=== PATIENT | female | born 1985 | race Caucasian/White ===

== ENCOUNTER 2017-06-09 15:01 | Inpatient (IN) ==
--- NOTE | 2017-06-09 15:13 | Emergency Department Note ---
Disposition Clinical Impression: Hypertensive urgency Chest pain Qualifiers: Chest pain type: unspecified Qualified Code(s): R07.9 - Chest pain, unspecified Disposition: Admitted As Inpatient Condition: Fair Time of Disposition: 17:59 Weakness HPI - General Chief complaint: ED Weakness Stated complaint: stroke alert Time Seen by Provider: 06/09/17 15:07 Source: patient Mode of arrival: ambulatory Limitations: no limitations Nursing Notes Reviewed: Yes Vital Signs Reviewed: Yes - History of Present Illness HPI Narrative: 32-year-old who was started on new blood pressure medicine to last night comes in today after developing chest pain following the chest pain development which he describes as substernal, tearing like she states she developed some left arm weakness and some left facial weakness. This occurred at about 2:15 AM initial diastolic blood pressure was 120. 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 Duration: constant Location: other (Chest) Migration: none Pain Severity: none Pain Scale: 6 If pain, quality: aching Improves with: none Worsens with: none Context: new medication (Pressure medicine last p.m.) Associated symptoms: Reports: chest pain (Tearing-type chest pain) - Related Data Home Medications Medication Instructions Recorded Confirmed Albuterol Sulfate [Proair Hfa] 2 puff IH Q4-6H PRN 02/28/16 06/09/17 Ibuprofen [Motrin] 800 mg PO Q8HR PRN 02/28/16 06/09/17 Norethindrone-E.estradiol-Iron 1 tab PO DAILY 02/28/16 06/09/17 [Loestrin Fe 1-20 Tablet] Omeprazole [PriLOSEC] 40 mg PO DAILY 02/28/16 06/09/17 Promethazine [Phenergan] 25 mg PO Q6HR PRN 02/28/16 06/09/17 Escitalopram [Lexapro] 20 mg PO DAILY 06/09/17 06/09/17 Hyoscyamine Sulfate [Symax Duotab] 0.375 mg PO HS 06/09/17 06/09/17 Losartan [Cozaar] 100 mg PO HS 06/09/17 06/09/17 amLODIPine [Norvasc] 2.5 mg PO HS 06/09/17 06/09/17 metFORMIN [Glucophage] 500 mg PO HS 06/09/17 06/09/17 Previous Rx's Medication Instructions Recorded Amoxicillin/Clavulanate [Augmentin] 500 mg PO BIDWM #10 tablet 06/06/17 Allergies Allergy/AdvReac Type Severity Reaction Status Date / Time bupropion [From Wellbutrin] AdvReac Vomiting Verified 06/06/17 19:25 All systems ED: reviewed and negative except as stated. Constitutional: Denies: fever, chills, weakness, weight change Eyes: Denies: eye pain, eye discharge, vision change ENT ED: Denies: ear pain, throat pain, dental pain, hearing loss, epistaxis, congestion, dysphagia Cardiovascular: Reports: chest pain. Denies: palpitations, dyspnea on exertion , edema, syncope Respiratory: Denies: cough, dyspnea, wheezes, hemoptysis, stridor Gastrointestinal: Denies: abdominal pain, nausea, vomiting, diarrhea, constipation, hematemesis, melena, hematochezia Genitourinary: Denies: dysuria, frequency, hematuria, discharge Musculoskeletal: Denies: back pain, neck pain, arthralgia, myalgia Integumentary: Denies: rash, abrasion, lesions Neurological: Reports: weakness. 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 - Social History Smoking Status: Never smoker Smokeless Tobacco Status: No Alcohol use: Reports: none Drug use: Reports: none Physical Exam - General Limitations: no limitations General appearance: alert, in no apparent distress - Head Head exam: atraumatic, normocephalic, normal inspection - Eye Eye exam: Present: normal appearance, PERRL, EOMI - ENT ENT exam: normal exam, normal oropharynx, mucous membranes moist - Neck Neck exam: Present: normal inspection, full ROM, trachea midline - Chest Chest inspection: Present: normal inspection, symmetric chest wall rise - Respiratory Respiratory exam: Present: normal lung sounds bilaterally - Cardiovascular Cardiovascular exam: Present: regular rate, normal rhythm, normal heart sounds - Abdominal Exam Abdominal exam: Present: soft, Non-Tender. Absent: tenderness, distention, guarding, rebound, rigidity - Extremities Exam Extremities exam: Present: normal inspection, full ROM. Absent: tenderness, pedal edema - Expanded Lower Extremity Exam Neurovascular/Tendon exam: Absent: motor deficit, sensory deficit, tendon deficit Gait: observed and normal - Back Exam Back exam: Present: normal inspection, full ROM. Absent: tenderness - Neurological Exam Neurological exam: Present: alert, oriented X3, motor sensory deficit - Psychiatric Psychiatric exam: Present: normal affect, normal mood - Skin Skin exam: Present: warm Course - Reevaluation(s) Reevaluation #1: Patient was started on a blood pressure medicine on to [facility]' she does not know their names although she says she was taken off lisinopril. She had some lower lip swelling which seems to be getting worse we will treat her with steroids and antihistamines. Time: 15:53 - Consultations Consultation #1: Dr. Peoples reports head CT is negative for acute findings. Time: 15:42 Consultation #2: Discussed with , [facility], stroke alert and he does not feel the patient warrants TPA. He does request a CTA of the head and neck. And then we will admit for further evaluation and treatment. He recommends treatment of the hypertension. Time: 15:48 Consultation #3: Swelling of the lower lip markedly improved Time: 17:59 Additional Consultation(s): 18:[address] Welch, admit Vital Signs Temperature 98.1 F 06/09/17 15:04 Pulse Rate 118 06/09/17 15:04 Respiratory Rate 15 06/09/17 15:04 Blood Pressure 208/120 06/09/17 15:04 O2 Sat by Pulse Oximetry 95 06/09/17 15:04 Temperature 98.1 F 06/09/17 15:04 Pulse Rate 120 06/09/17 19:31 Respiratory Rate 18 06/09/17 20:13 Blood Pressure 130/81 06/09/17 20:13 O2 Sat by Pulse Oximetry 97 06/09/17 19:31 Oxygen Delivery Oxygen Delivery Room Air Weakness - Lab Data Lab results reviewed: Yes I reviewed the patient's lab results. Result diagrams: 06/09/17 15:17 06/09/17 15:17 Lab Results 06/09/17 06/09/17 06/09/17 Range/Units 15:17 15:17 15:17 WBC 10.9 (4.3-11.1) K/mcL RBC 4.71 (3.82-4.97) M/mcL Hgb 14.3 (11.5-15.4) g/dL Hct 42.5 (35.3-44.9) % MCV 90.2 (83.0-100.0) fL MCH 30.4 (28.0-33.3) pg MCHC 33.6 (31.6-35.5) g/dL RDW 12.7 (11.5-14.5) % Plt Count 396 (140-400) K/mcL MPV 9.8 (9.4-12.4) fL Immature Gran % 0.4 (0-4) % Seg Neutrophils % 67.8 % Lymphocytes % 23.0 % Monocytes % 4.8 % Eosinophils % 3.5 % Basophils % 0.5 % Neutrophils # 7.4 (1.6-8.9) K/mcL Lymphocytes # 2.5 (0.6-4.6) K/mcL Monocytes # 0.5 (0.0-1.3) K/mcL Eosinophils # 0.4 (0.0-0.6) K/mcL Basophils # 0.1 (0.0-0.2) K/mcL PT 11.0 (9.4-12.1) Seconds INR 1.0 APTT 29.0 (26.0-36.0) Seconds Sodium 136 (136-145) mEq/L Potassium 4.0 (3.5-5.1) mEq/L Chloride 100 (98-107) mEq/L Carbon Dioxide 23 (23-29) mEq/L BUN 12 (6-20) mg/dL Creatinine 0.59 L (0.60-1.20) mg/dL Est GFR ( Amer) > 60 (> 60) Est GFR (Non-Af Amer) > 60 (> 60) BUN/Creatinine Ratio 20 (6-26) Glucose 203 H (70-105) mg/dL Calculated Osmolality 288 (280-300) Calcium 9.1 (8.6-10.3) mg/dL Troponin I < 0.03 (< 0.04) ng/mL Serum , Qual (Negative) 06/09/17 Range/Units 16:39 WBC (4.3-11.1) K/mcL RBC (3.82-4.97) M/mcL Hgb (11.5-15.4) g/dL Hct (35.3-44.9) % MCV (83.0-100.0) fL MCH (28.0-33.3) pg MCHC (31.6-35.5) g/dL RDW (11.5-14.5) % Plt Count (140-400) K/mcL MPV (9.4-12.4) fL Immature Gran % (0-4) % Seg Neutrophils % % Lymphocytes % % Monocytes % % Eosinophils % % Basophils % % Neutrophils # (1.6-8.9) K/mcL Lymphocytes # (0.6-4.6) K/mcL Monocytes # (0.0-1.3) K/mcL Eosinophils # (0.0-0.6) K/mcL Basophils # (0.0-0.2) K/mcL PT (9.4-12.1) Seconds INR APTT (26.0-36.0) Seconds Sodium (136-145) mEq/L Potassium (3.5-5.1) mEq/L Chloride (98-107) mEq/L Carbon Dioxide (23-29) mEq/L BUN (6-20) mg/dL Creatinine (0.60-1.20) mg/dL Est GFR ( Amer) (> 60) Est GFR (Non-Af Amer) (> 60) BUN/Creatinine Ratio (6-26) Glucose (70-105) mg/dL Calculated Osmolality (280-300) Calcium (8.6-10.3) mg/dL Troponin I (< 0.04) ng/mL Serum , Qual Negative (Negative) - Radiology Data Radiology results reviewed: Yes I reviewed the patient's radiology results. - EKG Data EKG attestation: Yes I reviewed and interpreted this EKG. EKG shows normal: sinus rhythm Rate: tachycardia Rhythm: NSR Interpretation: nonspecific ST-T wave changes Critical Care Time Critical Care Time: Yes Total Critical Care Time: 35 Attestation: The high probability of a clinically significant, sudden or life threatening deterioration of the [35] system(s) required my full and direct attention, intervention and personal management. The aggregate critical care time was [] minutes. This time is in addition to time spent performing reported procedures but includes the following: [x] Data Review and interpretation [x] Patient assessment and monitoring of vital signs [x] Documentation [x] Medication orders and management NIH Stroke Scale - Level of Consciousness LOC: Alert - LOC Questions LOC Questions: Answers both correctly - LOC Commands LOC Commands: Performs both correctly - Best Gaze Best Gaze: Normal - Visual Visual: No visual loss - Facial Palsy Facial Palsy: Minor asymmetry on smiling, flattened nasolabial fold - Motor Arms Motor Arm-Left: Drift, does NOT hit bed Motor Arm-Right: No drift for 10 seconds - Motor Legs Motor Leg-Left: No drift for 5 seconds Motor Leg-Right: No drift for 5 seconds - Limb Ataxia Limb Ataxia: Normal, No Ataxia - Sensory Sensory: Normal - Best Language Best Language: No aphasia - Dysarthria Dysarthria: Normal - Extinction and Inattention Extinction and Inattention: Normal - NIHSS Total Score NIHSS Total Score: 2
[2017-06-09 15:22] LABS: Basophils # 0.1 K/mcL (0.0-0.2); Basophils % 0.5 %; Eosinophils # 0.4 K/mcL (0.0-0.6); Eosinophils % 3.5 %; Hematocrit 42.5 % (35.3-44.9); Hemoglobin 14.3 g/dL (11.5-15.4); Immature Granulocytes % 0.4 % (0-4); Lymphocytes # 2.5 K/mcL (0.6-4.6); Mean Corpuscular HGB Conc 33.6 g/dL (31.6-35.5); Mean Corpuscular Hemoglobin 30.4 pg (28.0-33.3); Mean Corpuscular Volume 90.2 fL (83.0-100.0); Mean Platelet Volume 9.8 fL (9.4-12.4); Monocytes # 0.5 K/mcL (0.0-1.3); Monocytes % 4.8 %; Neutrophils # 7.4 K/mcL (1.6-8.9); Platelet Count 396 K/mcL (140-400); Red Blood Count 4.71 M/mcL (3.82-4.97); Red Cell Distribution Width 12.7 % (11.5-14.5); Segmented Neutrophils % 67.8 %
[2017-06-09] MEDS: niCARdipine 40 MG/200 ML MLS IVC SCH (15:36)
[2017-06-09 15:46] LABS: Troponin I < 0.03 ng/mL (< 0.04)
[2017-06-09] MEDS ORDERED: methylPREDNISolone 125 MG/2 ML VIAL IVP ONE (15:51)
[2017-06-09] MEDS ORDERED: Famotidine 20 MG/2 ML VIAL IVP ONE (15:51)
[2017-06-09 16:20] LABS: BUN/Creatinine Ratio 20 (6-26); Blood Urea Nitrogen 12 mg/dL (6-20); Calcium 9.1 mg/dL (8.6-10.3); Carbon Dioxide 23 mEq/L (23-29); Chloride 100 mEq/L (98-107); Glucose 203 mg/dL (70-105); Osmolality,Calculated 288 (280-300); Sodium 136 mEq/L (136-145); eGFR For African Americans > 60 (> 60); eGFR For Non-African Americans > 60 (> 60)
--- NOTE | 2017-06-09 21:21 | Internal Med History&Physical ---
Date of Encounter: 06/09/17 Time of Encounter: 21:00 Assessment and Plan (1) Hypertensive urgency Current visit: Yes Status: Acute Patient reports a history of uncontrolled blood pressures and primary care provider has been adjusting medications In the ER, patient was found to have hypertension urgency with systolic blood pressure of 208/120 and heart rate 121. Will continue nicardipine drip started in the ER and monitor overnight MRI also order for concerns of possible CVA; CT of the head negative and patient without any neurological findings (2) Chest pain Current visit: Yes Status: Acute Suspect secondary to hypertension urgency First set of cardiac biomarkers negative in the ER Will trend troponins and monitor on telemetry Qualifiers: Chest pain type: unspecified Qualified Code(s): R07.9 - Chest pain, unspecified (3) GERD (gastroesophageal reflux disease) Current visit: Yes Status: Acute Epigastric tenderness on exam and CT of the chest showed markedly esophageal inflammatory changes consistent with diffuse esophagitis Place patient on IV PPI GI not available on the weekend for consult for EGD Qualifiers: Esophagitis presence: with esophagitis Qualified Code(s): K21.0 - Gastro- esophageal reflux disease with esophagitis (4) DVT prophylaxis Current visit: Yes Status: Acute Low risk; patient to ambulate Internal Medicine - H&P: HPI Chief complaint: Chest pain Admitted From: Home Plans for Post Hospital Care: Home History of present illness: Patient is a 32-year-old female with past medical history significant for uncontrolled hypertension, GERD and mood disorder who presents to the ER on 06/09 due to chest pain. Patient reports of substernal chest pain which she describes as sharp to achy to pressure which is constant with no provoking or relieving factors. She reported of associated symptoms of left jaw numbness and altered sensation all left side of face. Patient came into the ER for further evaluation. In the ER, patient was found to have hypertension urgency with systolic blood pressure of 208/120 and heart rate 121. Patient was started on nicardipine drip the ER. Patient will be admitted to medical surgical floor for management of hypertension urgency. Past Med Surg Social Fam HX - Past Medical History Medical history: diabetes, GERD, hypertension Psychiatric history: anxiety, depression - Past Surgical History Surgical History: non-contributory, - Social History Smoking Status: Never smoker Smokeless Tobacco Status: No Alcohol use: none Drug use: none - Family History Paternal Grandfather Living Status: Hx Family Cardiac Disorders: Yes (triple bypass, HTN) Paternal Grandmother Living Status: Still Living Hx Family Cardiac Disorders: Yes (HTN) Hx Family Cancer: Yes (thyroid) Maternal Grandmother Living Status: Still Living Hx Family Cancer: Yes (lung) Internal Medicine - H&P: Meds Albuterol Sulfate [Proair Hfa] 2 puff IH Q4-6H PRN 02/28/16 [History] Ibuprofen [Motrin] 800 mg PO Q8HR PRN 02/28/16 [History] Norethindrone-E.estradiol-Iron [Loestrin Fe 1-20 Tablet] 1 tab PO DAILY [History] Omeprazole [PriLOSEC] 40 mg PO DAILY 02/28/16 [History] Promethazine [Phenergan] 25 mg PO Q6HR PRN 02/28/16 [History] Amoxicillin/Clavulanate [Augmentin] 500 mg PO BIDWM #10 tablet 06/06/17 [Rx] Escitalopram [Lexapro] 20 mg PO DAILY 06/09/17 [History] Hyoscyamine Sulfate [Symax Duotab] 0.375 mg PO HS 06/09/17 [History] Losartan [Cozaar] 100 mg PO HS 06/09/17 [History] amLODIPine [Norvasc] 2.5 mg PO HS 06/09/17 [History] metFORMIN [Glucophage] 500 mg PO HS 06/09/17 [History] 3 Allergy/AdvReac Type Severity Reaction Status Date / Time bupropion [From Wellbutrin] AdvReac Vomiting Verified 06/06/17 19:25 All Systems PM: A 10-system review of systems was performed and is negative for pertinent findings except as documented above in the HPI. - Constitutional Vitals: Temp Pulse Resp BP Pulse Ox 98.1 F 120 18 130/81 97 06/09/17 15:04 06/09/17 19:31 06/09/17 20:13 06/09/17 20:13 06/09/17 19:31 General appearance: Present: A&O X 3, no acute distress - Head Head exam: Present: normocephalic - Eye Eye exam: Present: normal appearance - ENT ENT exam: Present: mucous membranes moist - Respiratory Respiratory exam: Present: CTAB. Absent: accessory muscle use, rales, rhonchi, wheezes - Cardiovascular Cardiovascular exam: Present: RRR, +S1, +S2. Absent: diastolic murmur, gallop, rubs, systolic murmur - GI/Abdominal GI/Abdominal exam: Present: normal bowel sounds, soft, tenderness (Epigastric tenderness to palpation), no peritoneal signs. Absent: distended - Extremities Exam Extremities exam: Absent: pedal edema - Psychiatric Psychiatric exam: Present: normal mood - Skin Skin exam: Present: normal color Internal Med - H&P Results - Labs CBC & Chem 7: 06/09/17 15:17 06/09/17 15:17
[2017-06-09] MEDS ORDERED: Naloxone 0.4 MG/ML INJ IVP PRN (21:29)
[2017-06-09] MEDS ORDERED: Dextrose Gel 15 GM/37.5 ML TUBE PO PRN ×2 (22:05)
[2017-06-09] MEDS ORDERED: D5% in Water 1,000 ML IVC PRN (22:05)
[2017-06-09] MEDS ORDERED: *HR* Dextrose 50 % in Water (Syg) 50 ML SYRINGE IVP PRN (22:05)
[2017-06-09] MEDS ORDERED: Insulin LISPRO 300 UNITS/3 ML VIAL SQ SCH (22:15)
[2017-06-09] MEDS: Acetaminophen 325 MG TABLET PO PRN (23:04)
[2017-06-10] MEDS: niCARdipine 40 MG/200 ML MLS IVC SCH ×2 (01:17→08:10)
[2017-06-10 04:01] LABS: Basophils % 0.2 %; Hematocrit 40.2 % (35.3-44.9); Hemoglobin 13.5 g/dL (11.5-15.4); Immature Granulocytes % 0.7 % (0-4); Lymphocytes # 0.9 K/mcL (0.6-4.6); Lymphocytes % 6.4 %; Mean Corpuscular HGB Conc 33.6 g/dL (31.6-35.5); Mean Corpuscular Hemoglobin 29.8 pg (28.0-33.3); Mean Corpuscular Volume 88.7 fL (83.0-100.0); Mean Platelet Volume 10.1 fL (9.4-12.4); Monocytes # 0.1 K/mcL (0.0-1.3); Monocytes % 0.8 %; Platelet Count 400 K/mcL (140-400); Red Blood Count 4.53 M/mcL (3.82-4.97); Red Cell Distribution Width 12.6 % (11.5-14.5); Segmented Neutrophils % 91.9 %
[2017-06-10 04:23] LABS: BUN/Creatinine Ratio 25 (6-26); Blood Urea Nitrogen 19 mg/dL (6-20); Calcium 9.8 mg/dL (8.6-10.3); Carbon Dioxide 19 mEq/L (23-29); Chloride 100 mEq/L (98-107); Glucose 300 mg/dL (70-105); Osmolality,Calculated 293 (280-300); Potassium 4.4 mEq/L (3.5-5.1); Sodium 135 mEq/L (136-145); eGFR For African Americans > 60 (> 60); eGFR For Non-African Americans > 60 (> 60)
[2017-06-10] MEDS: Acetaminophen 325 MG TABLET PO PRN (05:14)
[2017-06-10] MEDS: Insulin LISPRO 300 UNITS/3 ML VIAL SQ SCH ×3 (08:15→22:44)
[2017-06-10] MEDS ORDERED: Pantoprazole 40 MG VIAL IVP SCH ×2 (09:00→18:00)
[2017-06-10] MEDS ORDERED: NORETHINDRONE E ESTRADIOL IRON PO SCH (09:00)
--- NOTE | 2017-06-10 12:03 | Internal Med Progress Note ---
Date of Encounter: 06/10/17 Time of Encounter: 12:01 - Assessment and plan (1) Chest pain Current Visit: Yes Status: Resolved Assessment and plan: No substernal pain; currently has only epigastric pain. Cardiac enzymes trended negative x 2. Continue PPI as per below. Continue home anti- hypertensives as per below. Qualifiers: Chest pain type: unspecified Qualified Code(s): R07.9 - Chest pain, unspecified (2) Hypertensive urgency Current Visit: Yes Status: Acute Assessment and plan: Improved. Stop nicardipine drip. Restart home anti-hypertensives. Start hydralazine PRN. MRI head still pending for concerns over TIA vs CVA. She is having no focal neurological deficits at this time. (3) GERD (gastroesophageal reflux disease) Current Visit: Yes Status: Acute Assessment and plan: Still continues to have mild epigastric tenderness on exam. CT of the chest showed markedly esophageal inflammatory changes consistent with diffuse esophagitis and gastritis. Increased protonix to 40 mg IV Q12H. Will consult GI on Sunday to consider possible EGD while inpatient if remains symptomatic. Tolerating clear liquid diet, so will advance to cardiac diet. Qualifiers: Esophagitis presence: with esophagitis Qualified Code(s): K21.0 - Gastro- esophageal reflux disease with esophagitis (4) DVT prophylaxis Current Visit: Yes Status: Acute Assessment and plan: Low risk; continue ambulation and SCDs. - Time Spent With Patient less than 15 minutes - Subjective Interval history: Patient had no acute events overnight. She states that she is feeling better this AM. She still has some epigastric pain, but not like the chest pain she was feeling yesterday. She denies SOB, nausea, vomiting, fever, or chills. She wants to eat regular diet. She states that face numbness has resolved. She denies any focal neurological deficits. She has no new complaints. - Constitutional Vitals: Temp Pulse Resp BP Pulse Ox 97.5 F L 100 16 138/93 92 06/10/17 08:15 06/10/17 08:15 06/10/17 08:15 06/10/17 08:15 06/10/17 08:15 General appearance: Present: cooperative, A&O X 3, pleasant, no acute distress, obese, answers questions appropriately - Respiratory Respiratory exam: Present: CTAB. Absent: accessory muscle use, rales, rhonchi, wheezes Additional comments: Normal WOB - Cardiovascular Cardiovascular exam: Present: RRR, +S1, +S2. Absent: diastolic murmur, gallop, rubs, systolic murmur Additional comments: No BLE edema - GI/Abdominal GI/Abdominal exam: Present: normal bowel sounds, soft. Absent: distended, hepatomegaly, mass, splenomegaly Additional comments: Mild TTP diffusely across upper epigastrium. - Psychiatric Psychiatric exam: Present: normal affect, normal mood. Absent: anxious, depressed - Skin Skin exam: Present: dry, intact, warm. Absent: cyanosis, rash Internal Medicine: Result - Labs CBC & Chem 7: 06/10/17 03:44 06/10/17 03:44 Labs: Short CBC 06/10/17 Range/Units 03:44 WBC 14.2 H (4.3-11.1) K/mcL Hgb 13.5 (11.5-15.4) g/dL Hct 40.2 (35.3-44.9) % Plt Count 400 (140-400) K/mcL Neutrophils # 13.0 H (1.6-8.9) K/mcL BMP 06/10/17 03:44 Sodium 135 L Potassium 4.4 Chloride 100 Carbon Dioxide 19 L BUN 19 Creatinine 0.75 Glucose 300 H Calcium 9.8 Cardiac Enzymes 06/09/17 06/10/17 06/10/17 Range/Units 22:17 03:44 09:39 Troponin I < 0.03 < 0.03 < 0.03 (< 0.04) ng/mL - ABG Interpretation ABG results: PT/INR, D-dimer PT 11.0 Seconds (9.4-12.1) 06/09/17 15:17 - VTE Reasons for not Prescribing Prophylaxis: Treatment not Indicated - Low risk for VTE Documentation of Mechanical Device: Intermittent pneumatic compression device Consult Discharge Plan - Plan Referrals: Carlota Alexandre CNP [Primary Care Provider] -
[2017-06-10] MEDS ORDERED: Dextrose Gel 15 GM/37.5 ML TUBE PO PRN ×2 (16:32)
[2017-06-10] MEDS ORDERED: D5% in Water 1,000 ML IVC PRN (16:32)
[2017-06-10] MEDS ORDERED: Naloxone 0.4 MG/ML INJ IVP PRN (16:32)
[2017-06-10] MEDS ORDERED: *HR* Dextrose 50 % in Water (Syg) 50 ML SYRINGE IVP PRN (16:32)
[2017-06-10] MEDS ORDERED: Acetaminophen 325 MG TABLET PO PRN (16:32)
[2017-06-10] MEDS: *HR* HYDROcodone/Acet 5/325 mg TABLET PO PRN (16:59)
[2017-06-10] MEDS: amLODIPine 5 MG TABLET PO SCH (18:09)
[2017-06-10] MEDS: Pantoprazole 40 MG VIAL IVP SCH (18:16)
[2017-06-10] MEDS ORDERED: Fluconazole 100 MG TABLET PO ONE (19:00)
[2017-06-10] MEDS: Hyoscyamine SL 0.125 MG TAB.SUBL PO SCH (19:38)
[2017-06-10] MEDS ORDERED: Ketorolac 30 MG/ML VIAL IVP ONE (20:54)
[2017-06-10] MEDS ORDERED: Hyoscyamine SL 0.125 MG TAB.SUBL PO SCH (21:00)
[2017-06-10] MEDS ORDERED: amLODIPine 5 MG TABLET PO SCH ×2 (21:00)
[2017-06-11 04:31] LABS: Basophils % 0.2 %; Eosinophils # 0.2 K/mcL (0.0-0.6); Eosinophils % 1.8 %; Hematocrit 36.1 % (35.3-44.9); Immature Granulocytes % 0.5 % (0-4); Lymphocytes # 2.9 K/mcL (0.6-4.6); Mean Corpuscular Hemoglobin 29.8 pg (28.0-33.3); Mean Corpuscular Volume 90.5 fL (83.0-100.0); Mean Platelet Volume 9.9 fL (9.4-12.4); Monocytes # 0.6 K/mcL (0.0-1.3); Monocytes % 4.9 %; Neutrophils # 8.2 K/mcL (1.6-8.9); Platelet Count 345 K/mcL (140-400); Red Blood Count 3.99 M/mcL (3.82-4.97); Red Cell Distribution Width 12.9 % (11.5-14.5); Segmented Neutrophils % 68.6 %
[2017-06-11 04:32] LABS: Hemoglobin 11.9 g/dL (11.5-15.4)
[2017-06-11 04:50] LABS: BUN/Creatinine Ratio 36 (6-26); Blood Urea Nitrogen 22 mg/dL (6-20); Calcium 8.6 mg/dL (8.6-10.3); Carbon Dioxide 22 mEq/L (23-29); Chloride 103 mEq/L (98-107); Glucose 238 mg/dL (70-105); Osmolality,Calculated 293 (280-300); Potassium 3.5 mEq/L (3.5-5.1); Sodium 136 mEq/L (136-145); eGFR For African Americans > 60 (> 60); eGFR For Non-African Americans > 60 (> 60)
[2017-06-11] MEDS: Pantoprazole 40 MG VIAL IVP SCH ×2 (05:40→16:57)
[2017-06-11] MEDS: LOESTRIN FE PO SCH (07:52)
[2017-06-11] MEDS: Insulin LISPRO 300 UNITS/3 ML VIAL SQ SCH ×4 (07:56→20:34)
[2017-06-11] MEDS: Clotrimazole 1% CRM 15 GM TUBE TP SCH ×2 (07:57→20:33)
[2017-06-11] MEDS: amLODIPine 5 MG TABLET PO SCH (07:57)
[2017-06-11] MEDS ORDERED: hydrOXYzine pamoate 25 MG CAPSULE PO PRN (13:00)
--- NOTE | 2017-06-11 13:07 | Internal Med Progress Note ---
Date of Encounter: 06/11/17 Time of Encounter: 13:09 - Assessment and plan (1) Chest pain Current Visit: Yes Status: Resolved Assessment and plan: No substernal pain; currently has only epigastric pain. Cardiac enzymes trended negative x 2. Continue PPI as per below. Continue home anti- hypertensives as per below. Qualifiers: Chest pain type: unspecified Qualified Code(s): R07.9 - Chest pain, unspecified (2) Hypertensive urgency Current Visit: Yes Status: Resolved Assessment and plan: BP normalized. Continue home anti-hypertensives. Continue hydralazine IV PRN while NPO. MRI head with no acute abnormalities. She is having no focal neurological deficits at this time. (3) GERD (gastroesophageal reflux disease) Current Visit: Yes Status: Acute Assessment and plan: Still continues to have mild epigastric tenderness on exam. CT of the chest showed markedly esophageal inflammatory changes consistent with diffuse esophagitis and gastritis. Continue BID IV protonix. Start GI cocktail PRN. GI consulted today; appreciate input. Made NPO again due to failing diet. Will restart gentle IVF. Recheck labwork in AM. Qualifiers: Esophagitis presence: with esophagitis Qualified Code(s): K21.0 - Gastro- esophageal reflux disease with esophagitis (4) DVT prophylaxis Current Visit: Yes Status: Acute Assessment and plan: Low risk; continue ambulation and SCDs. - Time Spent With Patient less than 15 minutes - Subjective Interval history: Patient had no acute events overnight. She states was feeling better earlier this morning. No chest pain or abdominal pain overnight. However, after trial of liquid diet this AM, she started having abdominal discomfort again. She denies SOB, nausea, vomiting, fever, or chills. She has no new complaints. - Constitutional Vitals: Temp Pulse Resp BP Pulse Ox 98.3 F 96 18 145/83 96 06/11/17 11:45 06/11/17 11:45 06/11/17 11:45 06/11/17 11:45 06/11/17 11:45 General appearance: Present: cooperative, mild distress, A&O X 3, pleasant, obese, answers questions appropriately - Respiratory Respiratory exam: Present: CTAB. Absent: accessory muscle use, rales, rhonchi, wheezes Additional comments: Normal WOB - Cardiovascular Cardiovascular exam: Present: RRR, +S1, +S2. Absent: diastolic murmur, gallop, rubs, systolic murmur Additional comments: No BLE edema - GI/Abdominal GI/Abdominal exam: Present: normal bowel sounds, soft. Absent: distended, hepatomegaly, mass, splenomegaly Additional comments: Mild TTP upper epigrastrium and LUQ, no rebound or guarding - Psychiatric Psychiatric exam: Present: normal affect, normal mood. Absent: anxious, depressed - Skin Skin exam: Present: dry, intact, warm. Absent: cyanosis, rash Internal Medicine: Result - Labs CBC & Chem 7: 06/11/17 04:01 06/11/17 04:01 Labs: Short CBC 06/11/17 Range/Units 04:01 WBC 12.0 H (4.3-11.1) K/mcL Hgb 11.9 D (11.5-15.4) g/dL Hct 36.1 (35.3-44.9) % Plt Count 345 (140-400) K/mcL Neutrophils # 8.2 (1.6-8.9) K/mcL BMP 06/11/17 04:01 Sodium 136 Potassium 3.5 Chloride 103 Carbon Dioxide 22 L BUN 22 H Creatinine 0.61 Glucose 238 H Calcium 8.6 - ABG Interpretation ABG results: PT/INR, D-dimer PT 11.0 Seconds (9.4-12.1) 06/09/17 15:17 - Impressions Impressions Brain MRI 06/11/17 09:22 IMPRESSION: No evidence of acute intracranial abnormality. 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 No gross cortical dysplasia is identified. Clinical correlation for seizure however is suggested. D/ / 06/11/2017 10:25:29 Mike Marie MD / Shira Naqvi Interpreting Provider: Mike Marie MD - VTE Reasons for not Prescribing Prophylaxis: Treatment not Indicated - Low risk for VTE Documentation of Mechanical Device: Intermittent pneumatic compression device Consult Discharge Plan - Plan Referrals: Carlota Alexandre, FUEL OIL CLERK [Primary Care Provider] - (Office to call us back with follow up appointment)
[2017-06-11] MEDS ORDERED: GI Cocktail 40 ML EACH PO STA (13:08)
[2017-06-11] MEDS ORDERED: GI Cocktail 40 ML EACH PO PRN (13:08)
[2017-06-11] MEDS: 0.9 % Sodium Chloride 1,000 ML IVC SCH (13:30)
--- NOTE | 2017-06-11 14:42 | Electrocardiograph Report ---
[address] [address] Test Date: 2017-06-09 Pat Name: Jane Bills Department: 103 Room: 2N12 Gender: F Head Porter: TMR : 1985 Requested By: Gadiel Bran Order Number: [id number] Reading MD: Lalo Frias Measurements Intervals [place] Rate: 119 P: 38 [place]: 127 QRS: 52 QRSD: 84 T: 28 QT: 330 QTc: 401 Interpretive Statements SINUS TACHYCARDIA Electronically Signed On 06-11-2017 14:40:42 EDT by Lalo Frias
--- NOTE | 2017-06-11 15:01 | Gastroenterology Consult Note ---
<Janis Caldera - Last Filed: 06/11/17 17:06> Date of Encounter: 06/11/17 Time of Encounter: 14:53 - Assessment and plan (1) GERD (gastroesophageal reflux disease) Status: Acute Assessment and plan: CTA of the chest demonstrated esophagitis and gastritis on 06/09/2017. -Patient's symptoms adequately treated by GI cocktails. -Will obtain RUQ US of abdomen. -NPO -EGD tomorrow Qualifiers: Esophagitis presence: with esophagitis Qualified Code(s): K21.0 - Gastro- esophageal reflux disease with esophagitis (2) Irritable bowel disease Status: Acute Assessment and plan: Colonoscopy on 02/28/2016 demonstrates a mild spasm in the sigmoid colon suggesting irritable bowel syndrome. Qualifiers: Irritable bowel syndrome type: unspecified Qualified Code(s): K58.9 - Irritable bowel syndrome without diarrhea (3) Lesion of neck Status: Acute Assessment and plan: CTA of head and neck: An unusual new calcification was noted on 06/09/2017 projecting into the region of the left thyroid cartilage just above the anterior superior aspect of the thyroid tissue. This extends deep into the submucosal region adjacent the leftward margin of anterior portion of the airway. -Radiology recommending correlation with prior trauma or prior intervention. If none, they suggest a chondrosarcoma is possible. -They recommend ENT follow-up. -Patient does have prior history of a vocal cord paralysis device being implanted in the region. However, she also has history of left-sided lymphadenopathy in the region over the last month, which resolved after taking a course of steroids, as well as thyroid cancer in her grandmother. - Time Spent With Patient Total time spent is greater than 50% in coordination of care (as documented) at patient's floor/unit and/or counseling patient: GI History of Present Illness - Data of Consult Patient: known to practice within the last 3 years Consult date: 06/11/17 Requesting Physician: Gadiel Bran MD - Consult Narrative Reason for consult: abdominal pain, gastritis, and esophagitis History of present illness: Ms. Bills is a 32 year old female with past medical history of irritable bowel disease, hypertension, GERD, and mood disorder who presented to [facility] on 06/09/2017 with complaints of chest pain. At that time, patient described her symptoms as substernal sharp, achy, pressure with radiation to her back between her shoulders. She was reporting left-sided jaw numbness and altered sensation. In the emergency department, patient was found to have hypertensive urgency with systolic blood pressure of 208/120 and heart rate of 121. She was started on nicardipine drip. CT of the head was ordered and [facility] stroke team was called for her apparent left-sided focal neurological deficits. CTA of the head and neck was unremarkable other than an unusual new calcification noted in the region of the left thyroid cartilage. ENT follow-up is recommended for this. MRI of the brain showed no evidence of acute intracranial abnormality. Patient also underwent a CTA of the chest which demonstrated no acute aortic pathology, aneurysm, or dissection. CT of the chest did, however, demonstrate marked paraesophageal inflammatory changes consistent with diffuse esophagitis. Also noted was gastritis most prevalent in the fundus and body of the stomach. Patient's chest pain workup was negative , and her blood pressure normalized per management of by primary team. However , patient has continued to demonstrate mild epigastric tenderness on exam. Gastroenterology was consulted after patient was started on twice a day IV Protonix as well as GI cocktails when necessary. This morning, patient is resting comfortably. She states the GI cocktail provides significant relief from her epigastric abdominal pain. She describes her pain as burning and associated with eating. She states she does not feel any pain if not eating. She is currently nothing by mouth. She denies any current or active chest pain, shortness of breath, diaphoresis, nausea, or vomiting. She denies any dizziness, lightheadedness, or headaches. She denies any dysuria, hematuria, hematochezia, melena, or hematemesis. Colonoscopy: 2016- colonic spasm/Irritable bowel disease EGD: never Past Med Surg Social Fam HX - Past Medical History Attestation: Yes The following information was validated with the patient. Source: patient Medical history: diabetes, GERD, hypertension, other (irritable bowel disease) Psychiatric history: anxiety, depression - Past Surgical History Surgical History: non-contributory, , other (vocal cord stimulator placement) - Social History Smoking Status: Never smoker Smokeless Tobacco Status: No Alcohol use: none Drug use: none - Family History Paternal Grandfather Living Status: Hx Family Cardiac Disorders: Yes (triple bypass, HTN) Paternal Grandmother Living Status: Still Living Hx Family Cardiac Disorders: Yes (HTN) Hx Family Cancer: Yes (thyroid) Maternal Grandmother Living Status: Still Living Hx Family Cancer: Yes (lung) - Gastrointestinal Gastrointestinal: Present: abdominal pain, diarrhea. Absent: change in bowel habits, coffee ground emesis, constipation, heartburn, hematochezia, melena, nausea, vomiting - Constitutional Constitutional: no anorexia, no fatigue, no fever(s) - EENT Nose, mouth and throat: Absent: throat swelling - Cardiovascular Cardiovascular ROS: Absent: chest pain, irregular heart rhythm, palpitations - Respiratory Respiratory IM: Absent: cough, dyspnea - Genitourinary Genitourinary: Absent: change in color, Urinary frequency - Neurological ROS Neurological GI: Absent: confusion, dizziness, frequent falls, headache(s), weakness - Integumentary Integumentary GI: Present: rash (right anterior avery rash) - Psychiatric ROS Psychiatric GI: Present: anxiety, depression - Constitutional Vitals: Temp Pulse Resp BP Pulse Ox 98.3 F 96 18 145/83 96 06/11/17 11:45 06/11/17 11:45 06/11/17 11:45 06/11/17 11:45 06/11/17 11:45 General appearance: Present: cooperative, A&O X 3, no acute distress, answers questions appropriately - Head Head exam: Present: atraumatic, normocephalic - Eye Eye exam: Present: normal appearance, sclera anicteric - Neck Neck exam general surgery: Present: normal inspection, trachea midline Additional comments: NO LAD palpated. - Respiratory Respiratory exam: Present: CTAB - Cardiovascular Cardiovascular exam: Present: RRR, +S1, +S2 - GI/Abdominal GI/Abdominal exam: Present: normal bowel sounds, soft, tenderness (epigastric tenderness to palpation), no peritoneal signs. Absent: distended, guarding, hernia - Expanded GI/Abdominal Exam GI/Abdominal exam expanded: Absent: ascites, Rovsing's sign, tenderness at McBurney's Point - Extremities Exam Extremities exam: Present: radial pulses palpable and symmetrical. Absent: calf tenderness, pedal edema - Neurological Exam Neurological exam: Present: no focal deficits - Psychiatric Psychiatric exam: Present: normal affect, normal mood - Skin Skin exam: Present: dry, intact, normal color, warm Additional comments: rash and excoriation noted on right anterior avery (being followed by dermatology ) Results - Labs CBC & Chem 7: 06/11/17 04:01 06/11/17 04:01 Labs: Last Result Calcium 8.6 mg/dL (8.6-10.3) 06/11/17 04:01 Troponin I < 0.03 ng/mL (< 0.04) 06/10/17 09:39 Entire Visit Hgb 11.9 g/dL (11.5-15.4) D 06/11/17 04:01 Hct 36.1 % (35.3-44.9) 06/11/17 04:01 PT 11.0 Seconds (9.4-12.1) 06/09/17 15:17 - ABG ABG results: PT/INR, D-dimer PT 11.0 Seconds (9.4-12.1) 06/09/17 15:17 - Impressions Impressions Brain MRI 06/11/17 09:22 IMPRESSION: No evidence of acute intracranial abnormality. 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 No gross cortical dysplasia is identified. Clinical correlation for seizure however is suggested. D/ / 06/11/2017 10:25:29 Mike Marie MD / Shira Naqvi Interpreting Provider: Mike Marie MD Consult Discharge Plan - Plan Referrals: Carlota Alexandre, COMPUTER FIELD TECHNICIAN [Primary Care Provider] - (Office to call us back with follow up appointment) Jayda Vee DO [Non-Partnered Physician] - (had CTA head and neck in patient for stroke rule out and was found to have: Unusual new calcification is noted projecting in the region of the left, thyroid cartilage, just above the anterior superior aspect of the thyroid tissue. This extends deep to the submucosal region adjacent to the leftward, margin of the anterior portion of the airway.) Prescriptions: amLODIPine [Norvasc] 5 mg PO DAILY #30 tablet <Darin Zayas - Last Filed: 06/27/17 13:08> Date of Encounter: 06/11/17 - Time Spent With Patient Total time spent is greater than 50% in coordination of care (as documented) at patient's floor/unit and/or counseling patient: GI History of Present Illness - Data of Consult Requesting Physician: Gadiel Bran MD - Consult Narrative History of present illness: Ms. Bills is a 32 year old female - Constitutional Vitals: Temp Pulse Resp BP Pulse Ox 98.5 F 128 20 147/96 96 06/12/17 15:49 06/12/17 17:18 06/12/17 17:18 06/12/17 15:32 06/12/17 15:32 Results - Labs CBC & Chem 7: 06/12/17 03:39 06/12/17 03:39 Labs: Last Result Calcium 8.6 mg/dL (8.6-10.3) 06/12/17 03:39 Troponin I < 0.03 ng/mL (< 0.04) 06/10/17 09:39 Entire Visit Hgb 12.4 g/dL (11.5-15.4) 06/12/17 03:39 Hct 37.4 % (35.3-44.9) 06/12/17 03:39 PT 11.0 Seconds (9.4-12.1) 06/09/17 15:17 - ABG ABG results: PT/INR, D-dimer PT 11.0 Seconds (9.4-12.1) 06/09/17 15:17 - Attending Attestation I examined this patient and my medical decision-making was reviewed with the Resident Physician. I agree with the documented findings, disposition and treatment plan as described except to the extent set forth below.
[2017-06-11] MEDS: *HR* HYDROcodone/Acet 5/325 mg TABLET PO PRN ×2 (16:55→23:15)
[2017-06-11] MEDS: NORGESTIMATE ETHINYL ESTRADIOL PO SCH (16:57)
[2017-06-11] MEDS: Hyoscyamine SL 0.125 MG TAB.SUBL PO SCH (20:30)
[2017-06-12 04:15] LABS: Basophils % 0.4 %; Eosinophils # 0.3 K/mcL (0.0-0.6); Eosinophils % 3.1 %; Hematocrit 37.4 % (35.3-44.9); Hemoglobin 12.4 g/dL (11.5-15.4); Immature Granulocytes % 0.2 % (0-4); Lymphocytes # 3.3 K/mcL (0.6-4.6); Lymphocytes % 29.3 %; Mean Corpuscular HGB Conc 33.2 g/dL (31.6-35.5); Mean Corpuscular Hemoglobin 29.9 pg (28.0-33.3); Mean Corpuscular Volume 90.1 fL (83.0-100.0); Mean Platelet Volume 9.8 fL (9.4-12.4); Monocytes # 0.6 K/mcL (0.0-1.3); Monocytes % 5.3 %; Neutrophils # 6.9 K/mcL (1.6-8.9); Platelet Count 327 K/mcL (140-400); Red Blood Count 4.15 M/mcL (3.82-4.97); Red Cell Distribution Width 12.9 % (11.5-14.5); Segmented Neutrophils % 61.7 %
[2017-06-12 04:34] LABS: BUN/Creatinine Ratio 24 (6-26); Blood Urea Nitrogen 13 mg/dL (6-20); Calcium 8.6 mg/dL (8.6-10.3); Carbon Dioxide 28 mEq/L (23-29); Chloride 101 mEq/L (98-107); Glucose 140 mg/dL (70-105); Osmolality,Calculated 286 (280-300); Potassium 3.7 mEq/L (3.5-5.1); Sodium 137 mEq/L (136-145); eGFR For African Americans > 60 (> 60); eGFR For Non-African Americans > 60 (> 60)
[2017-06-12] MEDS: LOESTRIN FE PO SCH (07:55)
[2017-06-12] MEDS: 0.9 % Sodium Chloride 1,000 ML IVC SCH (08:01)
[2017-06-12] MEDS: amLODIPine 5 MG TABLET PO SCH (08:02)
[2017-06-12] MEDS: Pantoprazole 40 MG VIAL IVP SCH (08:03)
[2017-06-12] MEDS: Clotrimazole 1% CRM 15 GM TUBE TP SCH (08:07)
[2017-06-12] MEDS: NORGESTIMATE ETHINYL ESTRADIOL PO SCH (08:08)
[2017-06-12] MEDS: Insulin LISPRO 300 UNITS/3 ML VIAL SQ SCH ×3 (08:23→16:00)
--- NOTE | 2017-06-12 10:02 | Gastroenterology Progress Note ---
<Janis Caldera - Last Filed: 06/12/17 11:42> Date of Encounter: 06/12/17 Time of Encounter: 10:00 - Assessment and plan (1) GERD (gastroesophageal reflux disease) Status: Acute Assessment and plan: CTA of the chest demonstrated esophagitis and gastritis on 06/09/2017. -Patient's symptoms adequately treated by GI cocktails. -Right upper quadrant ultrasound of the abdomen demonstrates steatosis. Will recommend lifestyle changes. -NPO -EGD today. Qualifiers: Esophagitis presence: with esophagitis Qualified Code(s): K21.0 - Gastro- esophageal reflux disease with esophagitis (2) Irritable bowel disease Status: Acute Assessment and plan: Colonoscopy on 02/28/2016 demonstrates a mild spasm in the sigmoid colon suggesting irritable bowel syndrome. -Continue hyoscyamine Qualifiers: Irritable bowel syndrome type: unspecified Qualified Code(s): K58.9 - Irritable bowel syndrome without diarrhea (3) Lesion of neck Status: Acute Assessment and plan: CTA of head and neck: An unusual new calcification was noted on 06/09/2017 projecting into the region of the left thyroid cartilage just above the anterior superior aspect of the thyroid tissue. This extends deep into the submucosal region adjacent the leftward margin of anterior portion of the airway. -Radiology recommending correlation with prior trauma or prior intervention. If none, they suggest a chondrosarcoma is possible. -They recommend ENT follow-up. -Patient does have prior history of a vocal cord paralysis device being implanted in the region. However, she also has history of left-sided lymphadenopathy in the region over the last month, which resolved after taking a course of steroids, as well as thyroid cancer in her grandmother. - Time Spent With Patient Total time spent is greater than 50% in coordination of care (as documented) at patient's floor/unit and/or counseling patient: - Subjective Interval history: Ms. Bills is resting comfortably this morning. She still complains of mild diffuse abdominal tenderness. She states she had a loose bowel movement this morning. She has not had anything to eat, however, when she did have some sleeping crackers last night, it did cause her abdominal discomfort. Denies any chest pain, shortness of breath, dizziness, fatigue, weakness, or headaches. - Constitutional Vitals: Temp Pulse Resp BP Pulse Ox 98.3 F 96 18 158/108 97 04/03/18 07:53 06/12/17 08:10 06/12/17 07:53 06/12/17 07:53 06/12/17 07:53 General appearance: Present: cooperative, A&O X 3, no acute distress, answers questions appropriately - Head Head exam: Present: atraumatic, normocephalic - Eye Eye exam: Present: normal appearance, sclera anicteric - Neck Neck exam general surgery: Present: normal inspection, trachea midline - Respiratory Respiratory exam: Present: CTAB - Cardiovascular Cardiovascular exam: Present: RRR, +S1, +S2 - GI/Abdominal GI/Abdominal exam: Present: normal bowel sounds, soft, tenderness (Mild, diffuse.), no peritoneal signs. Absent: distended, firm, guarding - Expanded GI/Abdominal Exam GI/Abdominal exam expanded: Absent: ascites, Rovsing's sign, tenderness at McBurney's Point - Extremities Exam Extremities exam: Present: warm Additional comments: Rash and excoriation noticed over the right anterior avery. - Neurological Exam Neurological exam: Present: no focal deficits - Psychiatric Psychiatric exam: Present: normal affect, normal mood Results - Labs CBC & Chem 7: 06/12/17 03:39 06/12/17 03:39 Labs: Last Result Calcium 8.6 mg/dL (8.6-10.3) 06/12/17 03:39 Troponin I < 0.03 ng/mL (< 0.04) 06/10/17 09:39 Entire Visit Hgb 12.4 g/dL (11.5-15.4) 06/12/17 03:39 Hct 37.4 % (35.3-44.9) 06/12/17 03:39 PT 11.0 Seconds (9.4-12.1) 06/09/17 15:17 - ABG ABG results: PT/INR, D-dimer PT 11.0 Seconds (9.4-12.1) 06/09/17 15:17 - Impressions Impressions Brain MRI 06/11/17 09:22 IMPRESSION: No evidence of acute intracranial abnormality. 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 No gross cortical dysplasia is identified. Clinical correlation for seizure however is suggested. D/ / 06/11/2017 10:25:29 Mike Marie MD / Shira Naqvi Interpreting Provider: Mike Marie MD Abdomen Ultrasound 06/11/17 17:05 IMPRESSION: Increased hepatic echogenicity consistent with steatosis. Otherwise unremarkable right upper quadrant ultrasound. D/ / Young Nolan MD / Young Nolan MD Interpreting Provider: Young Nolan MD - VTE Reasons for not Prescribing Prophylaxis: Treatment not Indicated - Low risk for VTE Documentation of Mechanical Device: Intermittent pneumatic compression device Consult Discharge Plan - Plan Referrals: Carlota Alexandre, WIND ENERGY ENGINEER [Primary Care Provider] - (Office to call us back with follow up appointment) Jayda Vee DO [Non-Partnered Physician] - (had CTA head and neck in patient for stroke rule out and was found to have: Unusual new calcification is noted projecting in the region of the left, thyroid cartilage, just above the anterior superior aspect of the thyroid tissue. This extends deep to the submucosal region adjacent to the leftward, margin of the anterior portion of the airway.) Prescriptions: amLODIPine [Norvasc] 5 mg PO DAILY #30 tablet <Darin Zayas - Last Filed: 07/02/17 07:19> Date of Encounter: 06/12/17 - Time Spent With Patient Total time spent is greater than 50% in coordination of care (as documented) at patient's floor/unit and/or counseling patient: - Constitutional Vitals: Temp Pulse Resp BP Pulse Ox 98.5 F 128 20 147/96 96 06/12/17 15:49 06/12/17 17:18 06/12/17 17:18 06/12/17 15:32 06/12/17 15:32 Results - Labs CBC & Chem 7: 06/12/17 03:39 06/12/17 03:39 Labs: Last Result Calcium 8.6 mg/dL (8.6-10.3) 06/12/17 03:39 Troponin I < 0.03 ng/mL (< 0.04) 06/10/17 09:39 Entire Visit Hgb 12.4 g/dL (11.5-15.4) 06/12/17 03:39 Hct 37.4 % (35.3-44.9) 06/12/17 03:39 PT 11.0 Seconds (9.4-12.1) 06/09/17 15:17 - ABG ABG results: PT/INR, D-dimer PT 11.0 Seconds (9.4-12.1) 06/09/17 15:17 - Attending Attestation Ms. Bills comes in for chest pain and her symptoms and examination states that she has significant reflux possibility certainly has a positive stricture will plan an EGD in and make further recommendations after that. I examined this patient and my medical decision-making was reviewed with the Resident Physician. I agree with the documented findings, disposition and treatment plan as described except to the extent set forth below.
[2017-06-12] MEDS ORDERED: Lidocaine -MPF 2% 2 ML VIAL ONE ×2 (14:03→14:04)
[2017-06-12] MEDS ORDERED: *HR* Propofol 200 MG/20 ML VIAL IVP ONE ×2 (14:03→14:04)
--- NOTE | 2017-06-12 15:00 | Anesthesia Evaluation PreOp ---
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 Any Significant HX Other Medical History: Diabetes Type II Anesthesia History: No Prior Anesthetic Complications (denies personal and family h/o GA complications) : No Test: Negative Alcohol Use: none Drug use: none Medications and Allergies Albuterol Sulfate [Proair Hfa] 2 puff IH Q4-6H PRN 02/28/16 [History] Ibuprofen [Motrin] 800 mg PO Q8HR PRN 02/28/16 [History] Omeprazole [PriLOSEC] 40 mg PO DAILY 02/28/16 [History] Promethazine [Phenergan] 25 mg PO Q6HR PRN 02/28/16 [History] Amoxicillin/Clavulanate [Augmentin] 500 mg PO BIDWM #10 tablet 06/06/17 [Rx] Escitalopram [Lexapro] 20 mg PO DAILY 06/09/17 [History] Hyoscyamine Sulfate [Symax Duotab] 0.375 mg PO HS 06/09/17 [History] Losartan [Cozaar] 100 mg PO HS 06/09/17 [History] amLODIPine [Norvasc] 2.5 mg PO HS 06/09/17 [History] metFORMIN [Glucophage] 500 mg PO BID 06/09/17 [History] Norgestimate-Ethinyl Estradiol [Mononessa 28 Tablet] 1 tab PO DAILY 06/10/17 [ History] hydrOXYzine pamoate [Hydroxyzine Pamoate] 25 mg PO Q8H PRN 06/10/17 [History] 3 Allergy/AdvReac Type Severity Reaction Status Date / Time bupropion [From Wellbutrin] AdvReac Vomiting Verified 06/06/17 19:25 - Meds/Allergy Pre-op Review Medications Reviewed: Yes Allergies Reviewed: No Beta Blockers on Current Med List: No Anesthesia Results - Labs 06/12/17 03:39 06/12/17 03:39 Anesthesia Exam Height: 1.65m Weight: 104kg NPO (# of Hours): >8hrs Pain Scale: 0 Pain Scale Used: Numeric (1 - 10) - HEENT Pupil (Motor): Pupils equal Mallampati: III Teeth: Normal Oral Opening: Greater than 3 - COMMERCIAL GREEN BUILDING DESIGNER LOC: Oriented COMMERCIAL GREEN BUILDING DESIGNER Motor: Normal RUE, Normal LUE, Normal RLE, Normal LLE, Normal Face COMMERCIAL GREEN BUILDING DESIGNER Sensory: Normal: RUE, LUE, RLE, LLE, Face - Cardiac Rhythm: Regular Murmur: None - Pulmonary Breath Sounds: bilateral Clear Respiratory Effort: Symmetrical Anesthesia Assess/Plan ASA Score: 2 Modified Benavides Scale for Level of Consciousness: Cooperative, oriented, and tranquil Anesthetic Plan: MAC Autologous Blood: No Monitoring Plan: Standard Monitors Recovery Plan: Other
[2017-06-12 15:33] VITALS: BP 147/96
[2017-06-12] MEDS ORDERED: amLODIPine 5 MG TABLET PO ONE (15:45)
[2017-06-12] MEDS: *HR* HYDROcodone/Acet 5/325 mg TABLET PO PRN (15:58)
[2017-06-12] MEDS ORDERED: Ondansetron 4 MG/2 ML VIAL IVP PRN (16:13)
--- NOTE | 2017-06-12 16:22 | Discharge Summary ---
<Jayant Lawrence - Last Filed: 06/12/17 16:14> Orders not resulted at time of discharge: Pending orders 06/12/17 15:04 Surgical Pathology [PTH] Routine Date of Encounter: 06/12/17 Time of Encounter: 16:14 - Discharge Diagnosis (1) Hypertensive urgency Priority: Primary Status: Resolved (2) Chest pain Priority: Secondary Status: Resolved Qualifiers: Chest pain type: unspecified Qualified Code(s): R07.9 - Chest pain, unspecified (3) DVT prophylaxis Priority: Secondary Status: Acute (4) GERD (gastroesophageal reflux disease) Priority: Secondary Status: Acute Qualifiers: Esophagitis presence: with esophagitis Qualified Code(s): K21.0 - Gastro- esophageal reflux disease with esophagitis (5) Irritable bowel disease Priority: Secondary Status: Chronic Qualifiers: Irritable bowel syndrome type: with diarrhea Qualified Code(s): K58.0 - Irritable bowel syndrome with diarrhea (6) Lesion of neck Priority: Secondary Status: Acute Hospital course: Ms. Bills is a 32 year old female presented with chief complaint of chest pain that was substernal with radiation to jaw. She was found to have a blood pressure 208/120 and started on Srikanth pain drip. Patient also had left-sided jaw numbness and altered sensation. She had a CT of the head which was negative and [facility] stroke team was called for left-sided neurological deficits. CTA of the head and neck was negative but did show new calcification noted in the region of the left thyroid cartilage. MRI of the brain was negative and CT of the chest was negative for PE or pulmonary pathology. CT of the chest showed markedly paraesophageal inflammatory changes consistent with diffuse esophagitis, and there was evidence of gastritis. Patient's EKG showed normal sinus rhythm with no ST-T wave changes. Troponin were negative. An patient's chest pain resolved with improved blood pressure. The carpeting was discontinued and she was restarted on home blood pressure medications including amlodipine and losartan. Her amlodipine dose was increased to 5 mg from 2.5 mg. GI was consulted for findings of CT and worsening reflux symptoms. Patient had abdominal ultrasound which was showing increased hepatic echogenicity consistent with steatosis otherwise was unremarkable. Patient was placed on IV Protonix before EGD was completed. EGD showed esophagitis and gastritis. Patient was cleared by GI for discharge. After EGD patient did have some nausea. She was given IV Zofran and if she tolerates her diet will be discharged today. Discharge discussed with: patient, family - Time Spent with Patient Total time spent providing and/or coordinating discharge services: - Discharge Medications Prescriptions: amLODIPine [Norvasc] 5 mg PO DAILY #30 tablet Home Medications: Albuterol Sulfate [Proair Hfa] 2 puff IH Q4-6H PRN 02/28/16 [History] Promethazine [Phenergan] 25 mg PO Q6HR PRN 02/28/16 [History] Escitalopram [Lexapro] 20 mg PO DAILY 06/09/17 [History] Hyoscyamine Sulfate [Symax Duotab] 0.375 mg PO HS 06/09/17 [History] Losartan [Cozaar] 100 mg PO HS 06/09/17 [History] metFORMIN [Glucophage] 500 mg PO BID 06/09/17 [History] Norgestimate-Ethinyl Estradiol [Mononessa 28 Tablet] 1 tab PO DAILY 06/10/17 [ History] hydrOXYzine pamoate [Hydroxyzine Pamoate] 25 mg PO Q8H PRN 06/10/17 [History] Omeprazole [PriLOSEC] 40 mg PO BID #60 06/12/17 [Rx] amLODIPine [Norvasc] 5 mg PO DAILY #30 tablet 06/12/17 [Rx] Allergies/Adverse Reactions: 3 Allergy/AdvReac Type Severity Reaction Status Date / Time bupropion [From Wellbutrin] AdvReac Vomiting Verified 06/06/17 19:25 Date of admission: 06/09/17 21:29 Primary care physician: Carlota Alexandre, Consults: 06/11/17 12:58 Consult to Gastroenterology [CONS] Routine Consulting Provider: Gastroenterology Coco Reason for Consult: Abdominal Pain, Gastritis, Esophagitis Call Completed: No Discharging clinician: Jayant Lawrence Anticipated date of discharge: 06/12/17 - Constitutional Vitals: Temp Pulse Resp BP Pulse Ox 98.5 F 121 20 147/96 96 06/12/17 15:49 06/12/17 15:32 06/12/17 15:32 06/12/17 15:32 06/12/17 15:32 General appearance: Present: cooperative, A&O X 3, pleasant, obese, answers questions appropriately - Other Additional findings: General: Pleasant without distress HEENT: Head atraumatic, normocephalic, EOMI, PERRL, neck nontender to palpation , absent lymphadenopathy, Moist Mucous Membranes, Heart: Regular rate and rhythm with no murmur Lungs: Clear to auscultation bilaterally Abdomen: Soft nontender, nondistended positive bowel sounds Skin: warm and dry Extremities: Absent pedal edema, Neuro: Cranial nerves II through XII intact, UE and LE sensation equal bilaterally, UE and LEstrength 5/5, alert oriented 3, Heel to avery intact, finger to nose intact, Gait intact, rhombergs sign negative, b/l plantar reflexes downwards Vascular: Pedal and radial pulses 2 out of 4 - Patient Status Disposition: Home, Self-Care Condition: Fair - Discharge Instructions Follow Up With: Carlota Alexandre, [employer] [Primary Care Provider] - (Office to call us back with follow up appointment) Jayda Vee DO [Non-Partnered Physician] - (had CTA head and neck in patient for stroke rule out and was found to have: Unusual new calcification is noted projecting in the region of the left, thyroid cartilage, just above the anterior superior aspect of the thyroid tissue. This extends deep to the submucosal region adjacent to the leftward, margin of the anterior portion of the airway.) - Diet and Activity Activity: increase activity as tolerated Diet: advance to your usual diet - VTE Reasons for not Prescribing Prophylaxis: Treatment not Indicated - Low risk for VTE Documentation of Mechanical Device: Intermittent pneumatic compression device <Rafi Patterson - Last Filed: 06/12/17 16:37> Orders not resulted at time of discharge: Pending orders 06/12/17 15:04 Surgical Pathology [PTH] Routine Date of Encounter: 06/12/17 Hospital course: Ms. Bills is a 32 year old female - Time Spent with Patient Total time spent providing and/or coordinating discharge services: Date of admission: 06/09/17 21:29 Primary care physician: Carlota Alexandre, Consults: 06/11/17 12:58 Consult to Gastroenterology [CONS] Routine Consulting Provider: Gastroenterology Coco Reason for Consult: Abdominal Pain, Gastritis, Esophagitis Call Completed: No - Constitutional Vitals: Temp Pulse Resp BP Pulse Ox 98.5 F 121 20 147/96 96 06/12/17 15:49 06/12/17 15:32 06/12/17 15:32 06/12/17 15:32 06/12/17 15:32 - Attending Attestation I performed an independent interview and examine this patient. I agree with the findings, assessment, and plan of Dr. Lawrence, internal medicine resident. Patient is improved from a blood pressure standpoint. We did not increase her Norvasc. We will aim for gradual reduction over time of her blood pressure. She did have an EGD as well which showed esophagitis and gastritis which we are treating with proton pump inhibitor therapy. She otherwise was doing well and deemed stable for discharge. She will need close follow-up of her blood pressure. 33 minutes spent on discharge and coordination of care.
[2017-06-12] MEDS ORDERED: Hyoscyamine SL 0.125 MG TAB.SUBL PO SCH (21:00)
[2017-06-13] MEDS ORDERED: amLODIPine 5 MG TABLET PO SCH (09:00)
== END 2017-06-12 18:06 | disposition home or self-care (01) | DRG 199 ==
LOC: EMEROO 15:01 → 2NNU 15:01
PROVIDERS: ADMIT Hospitalist; ATTEND Internal Medicine
PROC: ENDOEBX (2017-06-12 14:45)

== ENCOUNTER 2018-02-08 00:30 | Observation (INO) ==
[2018-02-08] MEDS ORDERED: 0.9 % Sodium Chloride 1,000 ML IVC ONE (01:02)
[2018-02-08] MEDS ORDERED: Ondansetron 4 MG/2 ML VIAL IVP ONE (01:02)
[2018-02-08] MEDS ORDERED: Hyoscyamine 0.5 MG/ML MLS IVP ONE (01:24)
--- NOTE | 2018-02-08 01:43 | Emergency Department Note ---
Disposition Clinical Impression: Intractable nausea and vomiting Qualifiers: Vomiting type: unspecified Qualified Code(s): R11.2 - Nausea with vomiting, unspecified Disposition: Admitted As Inpatient Condition: Good Referrals: NONE,PCP [Primary Care Provider] - Forms: ED Satisfaction Letter Time of Disposition: 03:14 Nausea/Vomiting/Diarrhea HPI - General Chief complaint: ED Nausea/Vomiting/Diarrhea Stated complaint: nvd Time Seen by Provider: 02/08/18 00:54 Source: patient Mode of arrival: ambulatory Limitations: no limitations - History of Present Illness HPI Narrative: Nontoxic-appearing 33-year-old female presents for a repeat evaluation of ongoing nausea and vomiting. She was discharged from this facility just a few hours ago for evaluation of the same. At that time, she complained of diffuse abdominal cramping, nausea, vomiting, and diarrhea that started approximately one half days ago. She denied any urinary symptoms or fevers. Laboratory and radiology workup ensued. She did have an elevated white blood cell count at 16.3 thousand with a predominance of neutrophils. Total bilirubin, direct bilirubin, indirect bilirubin, AST, ALT, and alkaline phosphatase were within normal limits. Urinalysis showed small bilirubin but no blood, no leukocyte esterase, 0-3 white blood cells per high-powered field, and few bacteria. CT imaging of the abdomen and pelvis showed no definite acute findings in the abdomen or pelvis. It did reveal a patchy left lower lobe airspace disease consistent with small or early pneumonia. She was discharged home with a prescription for Zofran. She states that she was unable to get a prescription for Zofran filled however she did take a Phenergan at home. She states that shortly thereafter, she vomited again. She states that her main concern is that she cannot keep anything down by mouth despite administration of Phenergan at home. Pt Subjective Complaint: nausea, vomiting, diarrhea, abdominal pain Onset (ago): day(s) (1.5) Associated Abdominal Pain: Yes If pain, Location of pain: diffuse Severity: moderate Quality: cramping Consistency: constant Improves with: nothing Worsens with: nonthing Associated symptoms: Denies: diaphoresis, fever/chills, dysuria - Related Data Home Medications Medication Instructions Recorded Confirmed Albuterol Sulfate [Proair Hfa] 2 puff IH Q4-6H PRN 02/28/16 02/08/18 Promethazine [Phenergan] 25 mg PO Q6HR PRN 02/28/16 02/08/18 Hyoscyamine Sulfate [Symax Duotab] 0.375 mg PO HS 06/09/17 02/08/18 Losartan [Cozaar] 100 mg PO HS 06/09/17 02/08/18 metFORMIN [Glucophage] 500 mg PO BID 06/09/17 02/08/18 Norgestimate-Ethinyl Estradiol 1 tab PO DAILY 06/10/17 02/08/18 [Mononessa 28 Tablet] Gabapentin [Neurontin] 300 mg PO BID PRN 02/08/18 02/08/18 Ibuprofen [Ibu] 600 mg PO Q8H PRN 02/08/18 02/08/18 Liraglutide [Victoza 2-Kameron] 1 ml SQ DAILY 02/08/18 02/08/18 Venlafaxine XR (24 HR) [Effexor XR] 75 mg PO DAILY 02/08/18 02/08/18 Previous Rx's Medication Instructions Recorded Omeprazole [PriLOSEC] 40 mg PO BID #60 06/12/17 amLODIPine [Norvasc] 5 mg PO DAILY #30 tablet 06/12/17 Ondansetron ODT [Zofran ODT] 4 mg SL Q6HR PRN #12 tab.rapdis 02/07/18 Allergies Allergy/AdvReac Type Severity Reaction Status Date / Time bupropion [From Wellbutrin] AdvReac Nausea Verified 02/08/18 00:39 All systems ED: reviewed and negative except as stated. Review of Systems: As Per HPI Constitutional: Denies: fever, chills, weakness, weight change Eyes: Denies: eye pain, eye discharge, vision change ENT ED: Denies: ear pain, throat pain, dental pain, hearing loss, epistaxis, congestion, dysphagia Cardiovascular: Denies: chest pain, palpitations, dyspnea on exertion, edema, syncope Respiratory: Denies: cough, dyspnea, wheezes, hemoptysis, stridor Gastrointestinal: Reports: as per HPI, abdominal pain, nausea, vomiting, diarrhea. Denies: constipation, hematemesis, melena, hematochezia Genitourinary: Denies: dysuria, frequency, hematuria, discharge Musculoskeletal: Denies: back pain, neck pain, arthralgia, myalgia Integumentary: Denies: rash, abrasion, lesions Neurological: Denies: headache, weakness, numbness, paresthesias, confusion, abnormal gait, vertigo Psychiatric: Denies: anxiety, depression, suicidal thoughts, homicidal thoughts, auditory hallucinations, visual hallucinations Endocrine: Denies: fatigue Hematological/Lymphatic: Denies: easy bleeding, easy bruising Allergic/Immunologic: Denies: facial swelling, urticaria Past Medical History - Past Medical History Attestation: Yes The following information was validated with the patient. Source: patient, nursing notes reviewed Medical history: Reports: diabetes, hypertension Surgical history: Reports: non-contributory, , other Psychiatric history: Reports: anxiety, depression SUPERVISOR RECORD PRESS history: Reports: no SUPERVISOR RECORD PRESS history - Social History Smoking Status: Never smoker Smokeless Tobacco Status: No Alcohol use: Reports: none Drug use: Reports: none Physical Exam - General Limitations: no limitations General appearance: alert, in no apparent distress - Head Head exam: atraumatic, normocephalic, normal inspection - Eye Eye exam: Present: normal appearance, PERRL, EOMI. Absent: nystagmus - ENT ENT exam: mucous membranes moist - Neck Neck exam: Present: normal inspection, full ROM, trachea midline - Chest Chest inspection: Present: normal inspection, symmetric chest wall rise - Respiratory Respiratory exam: Present: normal lung sounds bilaterally. Absent: respiratory distress, wheezes, stridor, accessory muscle use, prolonged expiratory phase - Cardiovascular Cardiovascular exam: Present: regular rate, normal rhythm, normal heart sounds - Abdominal Exam Abdominal exam: Present: soft, tenderness, normal bowel sounds. Absent: distention, guarding, rebound, rigidity, mass Abdominal tenderness: Present: diffuse, moderate - Extremities Exam Extremities exam: Present: normal inspection, full ROM. Absent: tenderness, pedal edema - Neurological Exam Neurological exam: Present: alert, oriented X3 - Psychiatric Psychiatric exam: Present: normal affect, normal mood - Skin Skin exam: Present: warm, dry, intact, normal color. Absent: rash Course Vital Signs Temperature 97.8 F 02/08/18 00:32 Pulse Rate 114 02/08/18 00:32 Respiratory Rate 20 02/08/18 00:32 Blood Pressure 156/105 02/08/18 00:32 O2 Sat by Pulse Oximetry 98 02/08/18 00:32 Temperature 97.8 F 02/08/18 00:32 Pulse Rate 116 02/08/18 02:47 Respiratory Rate 20 02/08/18 02:47 Blood Pressure 138/82 02/08/18 02:47 O2 Sat by Pulse Oximetry 99 02/08/18 02:47 Oxygen Delivery Oxygen Delivery Room Air Nausea/Vomiting/Diarrhea - MDM Narrative Medical decision making narrative: Laboratory and CT results were reviewed from the patient's visit here earlier this evening. The patient was given IV fluid and IV Zofran. He has not vomited since however states she does not feel well not to be discharged home for fear of recurrent nausea and vomiting. As such, the patient will be admitted to the hospitalist service. I have spoken with Dr. Greenwood, who has accepted the patient for admission to the hospitalist care. I have discussed this patient with Dr. Laura Oliveira. Dr. Laura Oliveira has had a [id number] evaluation with the patient and agrees with this plan. - Medical Records Medical records reviewed: Yes I reviewed the patient's medical records. - Lab Data Lab results reviewed: Yes I reviewed the patient's lab results. Lab Results 02/08/18 Range/Units 00:39 POC Glucose 202 H (70-99) mg/dL - Radiology Data Radiology results reviewed: Yes I reviewed the patient's radiology results.
[2018-02-08] MEDS ORDERED: Naloxone 0.4 MG/ML INJ IVP PRN (03:39)
[2018-02-08] MEDS ORDERED: Ondansetron 4 MG/2 ML VIAL IVP PRN (03:41)
--- NOTE | 2018-02-08 03:43 | Internal Med History&Physical ---
<Dylan Morin A - Last Filed: 02/08/18 03:56> Date of Encounter: 02/08/18 Time of Encounter: 03:43 Internal Medicine - H&P: HPI Chief complaint: nausea, vomting, and diarrhea Admitted From: Home Plans for Post Hospital Care: Home History of present illness: Ms. Bills is a 33 year old female with PMH of DM2, HTN, and IBS. She presented to the ED this morning after being discharged from the ED last night for the same complaint. She originally came in complaining of n/v/d, was given 2L normal saline, pain medication, and anti-emetics. She was discharged with a prescription for Zofran dissolvable tablets. After discharge, pt reports she was unable to fill the Zofran script and tried to eat chicken noodle soup at home. She subsequently vomited, called EMS, and was brought back to the ED. Per nurse report, pt has had no episodes of emesis or diarrhea during this most recent ED visit. During the encounter with this provider, pt is resting comfortably in bed. Continues to complain of diffuse crampy abdominal pain, and nausea. States the medication has helped. Endorses non-bloody emesis and non-bloody diarrhea. Denies any headache, fever, chills, chest pain, shortness of breath, numbness, or tingling. Denies any recent illness or sick contacts. Denies consuming any uncooked food recently or changing diet. States her DM2 has been well controlled without insulin thus far. Denies tobacco and ethanol use. 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 - Social History Smoking Status: Never smoker Smokeless Tobacco Status: No Alcohol use: none Drug use: none - Family History Paternal Grandfather Living Status: Hx Family Cardiac Disorders: Yes (triple bypass, HTN) Paternal Grandmother Living Status: Still Living Hx Family Cardiac Disorders: Yes (HTN) Hx Family Cancer: Yes (thyroid) Maternal Grandmother Living Status: Still Living Hx Family Cancer: Yes (lung) Internal Medicine - H&P: Meds Albuterol Sulfate [Proair Hfa] 2 puff IH Q4-6H PRN 02/28/16 [History] Promethazine [Phenergan] 25 mg PO Q6HR PRN 02/28/16 [History] Hyoscyamine Sulfate [Symax Duotab] 0.375 mg PO HS 06/09/17 [History] Losartan [Cozaar] 100 mg PO HS 06/09/17 [History] metFORMIN [Glucophage] 500 mg PO BID 06/09/17 [History] Norgestimate-Ethinyl Estradiol [Mononessa 28 Tablet] 1 tab PO DAILY 06/10/17 [History] Omeprazole [PriLOSEC] 40 mg PO BID #60 06/12/17 [Rx] amLODIPine [Norvasc] 5 mg PO DAILY #30 tablet 06/12/17 [Rx] Ondansetron ODT [Zofran ODT] 4 mg SL Q6HR PRN #12 tab.rapdis 02/07/18 [Rx] Gabapentin [Neurontin] 300 mg PO BID PRN 02/08/18 [History] Ibuprofen [Ibu] 600 mg PO Q8H PRN 02/08/18 [History] Liraglutide [Victoza 2-Kameron] 1 ml SQ DAILY 02/08/18 [History] Venlafaxine XR (24 HR) [Effexor XR] 75 mg PO DAILY 02/08/18 [History] Allergy/AdvReac Type Severity Reaction Status Date / Time bupropion [From Wellbutrin] AdvReac Nausea Verified 02/08/18 00:39 All Systems PM: A 10-system review of systems was performed and is negative for pertinent findings except as documented above in the HPI. - Constitutional Constitutional: no chills, no fever(s), no weakness, no weight gain, no weight loss - EENT Eyes: no blurry vision, no change in vision, no photophobia Ears: no decreased hearing, no tinnitus Nose, mouth and throat: no nasal congestion, no sinus pain, no sinus pressure - Cardiovascular Cardiovascular ROS IM: no chest pain, no diaphoresis, no dyspnea, no dyspnea on exertion, no lightheadedness, no palpitations - Respiratory Respiratory: no cough, no dyspnea, no hemoptysis, no dyspnea on exertion, no wheezing, no chest congestion, no excessive phlegm production, no change in phlegm color - Gastrointestinal Gastrointestinal: abdominal pain, cramping, diarrhea, nausea, vomiting, no constipation, no hematemesis, no hematochezia, no melena - Genitourinary Genitourinary: no dysuria, no urinary frequency, no urinary hesitancy, no urinary incontinence - Musculoskeletal Musculoskeletal ROS IM: no arthralgias, no myalgias, no numbness, no tingling - Integumentary Integumentary IM: no new lesions, no unusual bruising, no jaundice - Neurological Neurological ROS: no confusion, no dizziness, no headache(s), no numbness, no tingling, no vertigo, no weakness - Endocrine Endocrine IM: no polydipsia, no polyphagia, no polyuria - Hematologic/Lymphatic Hematologic/Lymphatic: no easy bleeding, no easy bruising - Constitutional Vitals: Temp Pulse Resp BP Pulse Ox 97.8 F 116 20 138/82 99 02/08/18 00:32 02/08/18 02:47 02/08/18 02:47 02/08/18 02:47 02/08/18 02:47 General appearance: Present: cooperative, A&O X 3, no acute distress, answers questions appropriately Exam: General: well nourished and well developed female in no acute distress Head: normocephalic and atraumatic Eyes: PERRL, EOMI, sclera anicteric, conjunctiva pink Neck: supple, trachea midline Lungs: CTA bilaterally, non-labored breathing. No wheezes, rales, or rhonchi Heart: RRR +s1 +S2 no murmurs, clicks, or rubs appreciated GI: abdomen soft, non-distended, slightly TTP diffusely. normoactive bowel sounds Extremities: warm, peripheral pulses palpable and symmetrical. No edema or cyanosis Neuro: A&Ox3. no focal deficits. no speech difficulty or abnormality Skin: warm, dry, intact - Assessment and plan (1) Gastroenteritis Current Visit: Yes Status: Acute Assessment and plan: Presented for N/V/D Afebrile Tachycardic Non-tachypnic Mildly elevated WBC at 16.3 CT abdomen/pelvis from initial ED visit was negative for GI abnormalities. Possible early pneumonia, however no clinical signs/symptoms at this time. 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 Bills is a 33 year old female All Systems PM: A 10-system review of systems was performed and is negative for pertinent findings except as documented above in the HPI. - Constitutional Vitals: Temp Pulse Resp BP Pulse Ox 98.3 F 110 16 139/94 96 02/08/18 07:14 02/08/18 07:14 02/08/18 07:14 02/08/18 07:14 02/08/18 07:14 Internal Med - H&P Results - Labs CBC & Chem 7: 02/08/18 04:43 02/08/18 04:43 Labs: Short CBC 02/08/18 Range/Units 04:43 WBC 12.4 H (4.3-11.1) K/mcL Hgb 12.5 (11.5-15.4) g/dL Hct 37.9 (35.3-44.9) % Plt Count 350 (140-400) K/mcL Neutrophils # 11.4 H (1.6-8.9) K/mcL BMP 02/08/18 04:43 Sodium 136 Potassium 3.7 Chloride 103 Carbon Dioxide 21 L BUN 9 Creatinine 0.44 L Glucose 168 H Calcium 7.6 L - Time Spent With Patient Total time spent is greater than 50% in coordination of care (as documented) at patient's floor/unit and/or counseling patient: - Attending Attestation I saw and evaluated the patient. I reviewed the residents note, performed my own physical examination and agree with findings and plan as documented in the residents note. Patient seen and examined on 02/08/18. Patient seen in the ER earlier in the evening, later to return for continued nausea, vomiting and diarrhea. Patient appears uncomfortable on exam, but no episodes of vomiting or diarrhea since arrival. Will continue symptomatic treatment and monitor for worsening signs of infection. Patient has an increased white count, follow up AM labs. Likely secondary to gastroenteritis.
[2018-02-08] MEDS ORDERED: Dextrose Gel 15 GM/37.5 ML TUBE PO PRN ×2 (04:36)
[2018-02-08] MEDS ORDERED: D5% in Water 1,000 ML IVC PRN (04:36)
[2018-02-08] MEDS ORDERED: *HR* Dextrose 50 % in Water (Syg) 50 ML SYRINGE IVP PRN (04:36)
[2018-02-08 05:25] LABS: Basophils % 0.2 %; Eosinophils # 0.1 K/mcL (0.0-0.6); Eosinophils % 0.7 %; Hematocrit 37.9 % (35.3-44.9); Hemoglobin 12.5 g/dL (11.5-15.4); Immature Granulocytes % 0.2 % (0-4); Lymphocytes # 0.5 K/mcL (0.6-4.6); Lymphocytes % 4.1 %; Mean Corpuscular Volume 87.9 fL (83.0-100.0); Mean Platelet Volume 10.2 fL (9.4-12.4); Monocytes # 0.4 K/mcL (0.0-1.3); Monocytes % 3.1 %; Neutrophils # 11.4 K/mcL (1.6-8.9); Platelet Count 350 K/mcL (140-400); Red Blood Count 4.31 M/mcL (3.82-4.97); Red Cell Distribution Width 12.8 % (11.5-14.5); Segmented Neutrophils % 91.7 %
[2018-02-08 05:40] LABS: BUN/Creatinine Ratio 20 (6-26); Blood Urea Nitrogen 9 mg/dL (6-20); Calcium 7.6 mg/dL (8.6-10.3); Carbon Dioxide 21 mEq/L (23-29); Chloride 103 mEq/L (98-107); Glucose 168 mg/dL (70-105); Osmolality,Calculated 285 (280-300); Potassium 3.7 mEq/L (3.5-5.1); Sodium 136 mEq/L (136-145); eGFR For Non-African Americans > 60 (> 60)
[2018-02-08] MEDS: Insulin LISPRO 300 UNITS/3 ML VIAL SQ SCH ×3 (05:59→18:13)
[2018-02-08] MEDS: *HR* OxyCODONE/APAP 5/325 TABLET PO PRN ×2 (10:39→16:39)
[2018-02-08] MEDS: Venlafaxine XR (24 HR) 75 MG CAP.ER.24H PO SCH (13:20)
--- NOTE | 2018-02-08 14:22 | Internal Med Progress Note ---
Hospitalist Progress Note - Encounter Date of Encounter: 02/08/18 Time of Encounter: 14:25 - Subjective Interval History: Ms. Bills is a 33 year old female with PMH of DM2, HTN, and IBS. She presented to the ED this morning after being discharged from the ED last night for the same complaint. She originally came in complaining of intractable nausea vomit ing and diarrhea from last couple of days. Pt was admitted in the hospital for symptomatic and supportive care. Patient stated she is feeling little better today she still have nausea but denied any vomiting. She still have diarrhea had 4 to 5 soft and lose bowel movements this morning. - Exam Vitals: Temp Pulse Resp BP Pulse Ox 98.1 F 111 17 141/82 96 02/08/18 11:21 02/08/18 11:21 02/08/18 11:21 02/08/18 11:21 02/08/18 11:21 Exam: Gen: Alert, awake, Oriented to time,place and person Chest: Diminished breath sounds B/L, No wheezing, No crackles, No rales Heart: S1S2+ RRR No murmurs Abd: Soft, mildly discomfort in the lower abdomen region, BS +, No organomegaly Ext: No edema, pulses are palpable, No calf tenderness Neuro : Benign findings Skin: No rash. - Assessment and Plan (1) Intractable nausea and vomiting Current Visit: Yes Status: Acute Assessment and Plan: Most likely due to viral gastroenteritis also concerning for possible gastroparesis too continue symptomatic and supportive care IV hydration Zofran as needed advance diet as she tolerates (2) Gastroenteritis Current Visit: Yes Status: Acute Assessment and Plan: Most likely viral gastroenteritis patient still mild tachycardic continue IV hydration (3) Diarrhea Current Visit: Yes Status: Acute Assessment and Plan: Mostly due to viral gastroenteritis will check stool G.I. panel no need to be on isolation at this point (4) Type 2 diabetes mellitus Current Visit: Yes Status: Chronic Assessment and Plan: Since patient was started on diet placed her on insulin sliding scale ACHS (5) GERD (gastroesophageal reflux disease) Current Visit: No Status: Acute Assessment and Plan: On PPI (6) DVT prophylaxis Current Visit: Yes Status: Acute Assessment and Plan: SQ Heparin - Time Spent with Patient Total time spent is greater than 50% in coordination of care (as documented) at patient's floor/unit and/or counseling patient: Internal Medicine: Result - Labs CBC & Chem 7: 02/08/18 04:43 02/08/18 04:43 Labs: Short CBC 02/08/18 Range/Units 04:43 WBC 12.4 H (4.3-11.1) K/mcL Hgb 12.5 (11.5-15.4) g/dL Hct 37.9 (35.3-44.9) % Plt Count 350 (140-400) K/mcL Neutrophils # 11.4 H (1.6-8.9) K/mcL BMP 02/08/18 04:43 Sodium 136 Potassium 3.7 Chloride 103 Carbon Dioxide 21 L BUN 9 Creatinine 0.44 L Glucose 168 H Calcium 7.6 L - VTE Documentation of Mechanical Device: Intermittent pneumatic compression device Consult Discharge Plan - Plan Referrals: NONE,PCP [Primary Care Provider] - _ (1) Intractable nausea and vomiting Qualifiers: Vomiting type: unspecified Qualified Code(s): R11.2 - Nausea with vomiting, unspecified (4) Type 2 diabetes mellitus Qualifiers: Diabetes mellitus exterminator insulin use: without exterminator use Diabetes mellitus complication status: without complication Qualified Code(s): E11.9 - Type 2 diabetes mellitus without complications (5) GERD (gastroesophageal reflux disease) Qualifiers: Esophagitis presence: with esophagitis Qualified Code(s): K21.0 - Gastro- esophageal reflux disease with esophagitis
[2018-02-08] MEDS ORDERED: Insulin LISPRO 300 UNITS/3 ML VIAL SQ SCH (21:00)
[2018-02-09] MEDS: *HR* OxyCODONE/APAP 5/325 TABLET PO PRN (06:15)
[2018-02-09 07:54] VITALS: BP 150/100
--- NOTE | 2018-02-09 08:38 | Discharge Summary ---
Date of Encounter: 02/09/18 Time of Encounter: 08:35 - Discharge Diagnosis (1) Intractable nausea and vomiting Priority: Primary Status: Resolved Qualifiers: Vomiting type: unspecified Qualified Code(s): R11.2 - Nausea with vomiting, unspecified (2) GERD (gastroesophageal reflux disease) Priority: Primary Status: Acute Qualifiers: Esophagitis presence: with esophagitis Qualified Code(s): K21.0 - Gastro- esophageal reflux disease with esophagitis (3) Type 2 diabetes mellitus Priority: Secondary Status: Chronic Qualifiers: Diabetes mellitus halfway insulin use: without intermediate accountant use Diabetes mellitus complication status: without complication Qualified Code(s): E11.9 - Type 2 diabetes mellitus without complications (4) Gastroenteritis Priority: Primary Status: Resolved (5) Diarrhea Priority: Secondary Status: Acute Qualifiers: Diarrhea type: unspecified type Qualified Code(s): R19.7 - Diarrhea, unspecified (6) DVT prophylaxis Priority: Secondary Status: Acute Hospital course: Ms. Bills is a 33 year old female who presented with multiple days of intractable nausea and vomiting. Most likely caused by viral gastroenteritis. She was treated with IV fluids for dehydration and antiemetics for in/V and responded favorably. Patient reports that nausea and vomiting has subsided and she has been able to tolerate a regular diet since yesterday afternoon. Vital stable, no metabolic derangements on last. She is being discharged in stable medical condition has been instructed to follow-up with PCP within 1 week of discharge. She will be sent home with when necessary Zofran. She has been instructed to return to emergency department for further evaluation if she is unable to tolerate oral intake greater than 24 hours. Discharge discussed with: patient, nurse - Time Spent with Patient Total time spent providing and/or coordinating discharge services: Less than 30 minutes - Discharge Medications Prescriptions: Ondansetron ODT [Zofran ODT] 4 mg SL Q6HR PRN 3 Days #12 tab.rapdis PRN Reason: Nausea Home Medications: Albuterol Sulfate [Proair Hfa] 2 puff IH Q4-6H PRN 02/28/16 [History] Promethazine [Phenergan] 25 mg PO Q6HR PRN 02/28/16 [History] Hyoscyamine Sulfate [Symax Duotab] 0.375 mg PO HS 06/09/17 [History] Losartan [Cozaar] 100 mg PO HS 06/09/17 [History] metFORMIN [Glucophage] 500 mg PO BID 06/09/17 [History] Norgestimate-Ethinyl Estradiol [Mononessa 28 Tablet] 1 tab PO DAILY 06/10/17 [History] Omeprazole [PriLOSEC] 40 mg PO BID #60 06/12/17 [Rx] amLODIPine [Norvasc] 5 mg PO DAILY #30 tablet 06/12/17 [Rx] Gabapentin [Neurontin] 300 mg PO BID PRN 02/08/18 [History] Ibuprofen [Ibu] 600 mg PO Q8H PRN 02/08/18 [History] Liraglutide [Victoza 2-Kameron] 1 ml SQ DAILY 02/08/18 [History] Venlafaxine XR (24 HR) [Effexor XR] 75 mg PO DAILY 02/08/18 [History] Ondansetron ODT [Zofran ODT] 4 mg SL Q6HR PRN 3 Days #12 tab.rapdis 02/09/18 [Rx] Allergies/Adverse Reactions: Allergy/AdvReac Type Severity Reaction Status Date / Time bupropion [From Wellbutrin] AdvReac Nausea Verified 02/08/18 00:39 Date of admission: 02/08/18 03:26 Primary care physician: PCP NONE Discharging clinician: Rashaad Espinoza Anticipated date of discharge: 02/09/18 - Constitutional Vitals: Temp Pulse Resp BP Pulse Ox 98 F 98 16 150/100 95 02/09/18 07:53 02/09/18 07:53 02/09/18 07:53 02/09/18 07:53 02/09/18 07:53 General appearance: Present: cooperative, A&O X 3, no acute distress, answers questions appropriately Exam: see exam - Head Head exam: Present: atraumatic, normocephalic - Eye Eye exam: Present: PERRL, conjuntiva pink, sclera anicteric Pupils: Present: PERRL - Neck Neck exam general surgery: Present: supple, trachea midline. Absent: lymphadenopathy - Respiratory Respiratory exam: Present: CTAB. Absent: accessory muscle use, rales, rhonchi, wheezes - Cardiovascular Cardiovascular exam: Present: RRR, +S1, +S2. Absent: diastolic murmur, gallop, rubs, systolic murmur - GI/Abdominal GI/Abdominal exam: Present: normal bowel sounds, soft, no peritoneal signs. Absent: distended, tenderness - Extremities Exam Extremities exam: Present: warm, radial pulses palpable and symmetrical. Absent: calf tenderness, cyanotic, pedal edema - Neurological Exam Neurological exam: Present: CN II-XII intact, oriented X3, no focal deficits. Absent: pronater drift, facial droop, speech deficit - Skin Skin exam: Present: dry, intact - Patient Status Disposition: Home, Self-Care Condition: Good Functional capacity at discharge: independent ambulation Overall status at discharge: patient is back to baseline - Discharge Instructions Instructions: Gastroenteritis (DC) Follow Up With: NONE,PCP [Primary Care Provider] - - Diet and Activity Activity: resume usual activities as tolerated Diet: advance to your usual diet - VTE Documentation of Mechanical Device: Intermittent pneumatic compression device
[2018-02-09] MEDS: Insulin LISPRO 300 UNITS/3 ML VIAL SQ SCH (09:08)
[2018-02-09] MEDS: Venlafaxine XR (24 HR) 75 MG CAP.ER.24H PO SCH (09:08)
== END 2018-02-09 09:32 | disposition home or self-care (01) ==
LOC: EMEROOARM 00:30 → 3BNU 00:30 → SUATTDRO 03:26 → 3BNU 03:45
PROVIDERS: ADMIT Internal Medicine; ATTEND Family Medicine